=== PATIENT | male | born 1995 | race Two or more races ===

== ENCOUNTER 2019-03-10 11:44 | Emergency (ER) | payer BC ==
[2019-03-10 13:34] LABS: Rapid Strep Molecular Negative (Negative)
[2019-03-10] MEDS ORDERED: Lidocaine 2% VISCOUS* 15 ML UDC PO ONE (13:37)
[2019-03-10] MEDS ORDERED: Ibuprofen TAB* 600 MG PO ONE (13:37)
[2019-03-10] MEDS ORDERED: Acetaminophen TAB* 325 MG PO ONE (13:37)
[2019-03-10] MEDS ORDERED: Dexamethasone TAB* 4 MG PO ONE (13:39)
--- NOTE | 2019-03-10 13:42 | ED ---
Throat Pain/Nasal Congestion - HPI Summary HPI Summary: 23 year old male reports to the ED with a chief complaint of sore tonsils and throat for the last 4 days. He reports a subjective fever starting last night, as well as nausea, ear pain in both ears, and pain while swallowing. Patient denies vomiting, diarrhea, and headache. History of tonsillitis. No history of smoking. Smokes marijuana daily. Occasionally drinks alcohol. Medications reviewed. Allergies noted. - History of Current Complaint Chief Complaint: EDThroatPain Time Seen by Provider: 03/10/19 13:30 Hx Obtained From: Patient Onset/Duration: Gradual Onset, Lasting Days, Still Present Severity: Moderate Cough: None - Allergies/Home Medications Allergies/Adverse Reactions: Allergies Allergy/AdvReac Type Severity Reaction Status Date / Time No Known Allergies Allergy Verified 03/10/19 13:30 Home Medications: Home Medications guaiFENesin [Mucinex] 600 mg PO DAILY PRN 03/10/19 [History Confirmed 03/10/19] PMH/Surg Hx/FS Hx/Imm Hx Previously Healthy: Yes EENT History: Reports: Hx Tonsillitis Infectious Disease History: No Infectious Disease History: Denies: Traveled Outside the [place] in Last 30 Days - Family History Known Family History: Negative: Cardiac Disease, Hypertension, Diabetes - Social History Alcohol Use: Weekly Substance Use Type: Reports: Marijuana Smoking Status (MU): Former Smoker Type: Cigarettes Review of Systems Positive: Fever - subjective Positive: Sore Throat, Ear Ache, Other - sore tonsil Positive: Nausea. Negative: Vomiting, Diarrhea All Other Systems Reviewed And Are Negative: Yes Physical Exam - Summary Physical Exam Summary: Constitutional: Well-developed, Well-nourished, Alert. (-) Distressed Skin: Warm, Dry HENT: Normocephalic; Atraumatic. Bilaterl tonsillar erythema, edema of uvula. Eyes: Conjunctiva normal Neck: Musculoskeletal ROM normal neck. (-) JVD, (-) Stridor, (-) Tracheal deviation. Tender anterior cervical adenopathy. Cardio: Rhythm regular, rate normal, Heart sounds normal; Intact distal pulses; Radial pulses are 2+ and symmetric. (-) Murmur Pulmonary/Chest wall: Effort normal. (-) Respiratory distress, (-) Wheezes, (-) Rales Abd: Soft, (-) tenderness, (-) Distension, (-) Guarding, (-) Rebound Musculoskeletal: (-) Edema Lymph: (-) Cervical adenopathy Neuro: Alert, Oriented x3 Psych: Mood and affect Normal Triage Information Reviewed: Yes Vital Signs On Initial Exam: Initial Vitals Temp Pulse Resp BP Pulse Ox 99.4 F 95 15 125/77 98 03/10/19 11:51 03/10/19 11:51 03/10/19 11:51 03/10/19 11:51 03/10/19 11:51 Vital Signs Reviewed: Yes Procedures - Sedation Patient Received Moderate/Deep Sedation with Procedure: No Diagnostics - Vital Signs Vital Signs Temp Pulse Resp BP Pulse Ox 03/10/19 11:51 99.4 F 95 15 125/77 98 - Laboratory Lab Results: Lab Results 03/10/19 Range/Units 12:00 Group A Strep Rapid Negative (Negative) Lab Statement: Any lab studies that have been ordered have been reviewed, and results considered in the medical decision making process. EENT Course/Dx - Course Course Of Treatment: Patient is here with a sore throat. Patient has no evidence of Deats's neck infection and does not need a CT scan. Patient was given ibuprofen, Tylenol, viscous lidocaine, and Decadron. Patient had negative strep test. - Diagnoses Provider Diagnoses: Pharyngitis Discharge ED - Sign-Out/Discharge Documenting (check all that apply): Patient Departure - home - Discharge Plan Condition: Stable Disposition: HOME Patient Education Materials: Pharyngitis (ED) Forms: *School Release Referrals: [facility] [Primary Care Provider] - Additional Instructions: Return to the Emergency department if you experience uncontrollable drooling, unable to move your neck, or other alarming symptoms. Take ibuprofen, go to the grocery store for lozenges, or drink tea with honey. Follow up with [facility] in 2-3 days. - Billing Disposition and Condition Condition: STABLE Disposition: Home - Attestation Statements Document Initiated by Scribe: Yes Documenting Scribe: Vish Herzog Provider For Whom Scribe is Documenting (Include Credential): Virgil Gan MD. Scribe Attestation: Vish Brown scribed for Virgil Gan MD. on 03/16/19 at 2148. Scribe Documentation Reviewed: Yes Provider Attestation: The documentation as recorded by the scribe, Vish Herzog accurately reflects the service I personally performed and the decisions made by me, Virgil Gan MD. Status of Scribe Document: Viewed
[2019-03-10 14:16] VITALS: BP 136/81
== END 2019-03-10 14:21 | disposition home or self-care (01) ==
LOC: ED 11:44
DX: J02.9 Acute pharyngitis, unspecified (principal); Z87.891 Personal history of nicotine dependence
CPT/HCPCS: 87651; 99282; A9270-GY; J8540